=== PATIENT | male | born 1990 | race Caucasian/White ===

== ENCOUNTER 2018-12-13 06:17 | Day surgery (SDC) | payer BC ==
[2018-12-13] MEDS ORDERED: CEFAZOLIN 2 GM/50 ML (PMX) 50 ML IVPB (07:00)
[2018-12-13] MEDS: ACETAMINOPHEN 500 MG TAB PO (07:35)
[2018-12-13] MEDS: SOD CHLORIDE 0.9% 1,000 ML IV (07:37)
[2018-12-13 07:41] LABS: ADD MAN DIFF? NO
[2018-12-13 07:43] LABS: WHITE BLOOD COUNT 8.1 10^3/ul (4.8-10.8)
[2018-12-13 07:43] LABS: ABNORMAL IP MESSAGE 1; BASOPHIL # 0.1 10^3/ul (0.0-0.1); BASOPHILS % 0.6 % (0.0-2.0); EOSINOPHILS # 0.2 10^3/ul (0.0-0.5); EOSINOPHILS % 2.8 % (0.0-7.0); HEMATOCRIT 38.8 % (42.0-52.0); HEMOGLOBIN 12.4 g/dl (14.0-18.0); LYMPHOCYTES # 2.9 10^3/ul (0.8-2.9); LYMPHOCYTES % 35.7 % (15.0-51.0); MEAN CORPUSCULAR VOLUME 68.9 fl (82.0-101.0); MONOCYTE # 0.6 10^3/ul (0.3-0.9); MONOCYTES % 7.6 % (0.0-11.0); NEUTROPHIL # 4.3 10^3/ul (1.6-7.5); NEUTROPHILS % 52.9 % (39.0-77.0); PLATELET COUNT 276 10^3/UL (140-415); POSITIVE DIFF @See below; RED BLOOD COUNT 5.63 10^6/ul (4.70-6.10); RED CELL DISTRIBUTION WIDTH 18.6 % (11.5-14.5)
[2018-12-13 07:49] LABS: INR 0.99; PROTIME 13.2 Sec (11.9-14.9)
[2018-12-13 07:50] LABS: PARTIAL THROMBOPLASTIN TIME 31.3 Sec (23.0-35.0)
[2018-12-13 07:51] LABS: BLOOD UREA NITROGEN 12 mg/dl (7-20); CALCIUM 9.2 mg/dl (8.4-10.2); CARBON DIOXIDE 26 mmol/L (21-31); CHLORIDE 105 mmol/L (97-110); Estimated GFR > 60 mL/min (>60); GLUCOSE 96 mg/dl (70-220)
[2018-12-13] MEDS ORDERED: MIDAZOLAM 1 MG/ML 2 ML INJ (08:08)
[2018-12-13] MEDS ORDERED: FAMOTIDINE 20 MG INJ (08:08)
[2018-12-13] MEDS ORDERED: CEFAZOLIN 1 GM INJ (08:08)
[2018-12-13] MEDS ORDERED: FENTAnyl 50 MCG/ML VIAL (08:08)
[2018-12-13] MEDS ORDERED: ROCURONIUM 50 MG INJ (08:08)
[2018-12-13] MEDS ORDERED: ONDANSETRON 4 MG INJ (08:08)
[2018-12-13] MEDS ORDERED: LIDOCAINE 2% (SDV) 5 ML INJ (08:08)
[2018-12-13] MEDS ORDERED: PROPOFOL 40 ML (08:08)
[2018-12-13] MEDS ORDERED: KETOROLAC 30 MG INJ (08:15)
[2018-12-13 08:17] LABS: ANION GAP 10 (5-13); SODIUM 141 mmol/L (135-144)
[2018-12-13] MEDS ORDERED: MEPERIDINE 25 MG INJ IV (09:30)
[2018-12-13] MEDS ORDERED: DIPHENHYDRAMINE 50 MG INJ IV (09:30)
[2018-12-13] MEDS ORDERED: morphine 2 MG INJ IV ×3 (09:30→12:30)
[2018-12-13] MEDS ORDERED: FENTAnyl 50 MCG/ML VIAL IV ×2 (09:30)
[2018-12-13] MEDS ORDERED: EPHEDrine 25 MG/5 ML SYG IV (09:30)
[2018-12-13] MEDS ORDERED: HYDROmorphONE 1 MG/5 ML IV SYRINGE IV ×3 (09:30)
[2018-12-13] MEDS ORDERED: hydrALAzine 20 MG INJ IV (09:30)
[2018-12-13] MEDS ORDERED: ONDANSETRON 4 MG INJ IV ×2 (09:30→12:30)
[2018-12-13] MEDS ORDERED: ALBUTEROL 0.083% (NEB) 2.5 MG/3 ML AMP HHN (09:30)
[2018-12-13] MEDS ORDERED: LABETALOL HCL 20MG INJ IV (09:30)
[2018-12-13] MEDS ORDERED: OXYCODONE/ACETAMINOPHEN (5/325) TAB PO ×2 (09:30)
[2018-12-13] MEDS ORDERED: PHENYLephrine (100 MCG/ML) 10ML SYG (10:12)
[2018-12-13] MEDS: BUPIVACAINE 0.5%/EPI (SDV) 30 ML INJ (11:03)
[2018-12-13] MEDS: LIDOCAINE 1%/EPI 30 ML INJ (11:03)
[2018-12-13] MEDS ORDERED: LACTATED RINGER'S 1,000 ML IV (12:03)
[2018-12-13] MEDS ORDERED: HYDROCODONE/APAP (5/325) TAB PO (12:30)
== END 2018-12-13 13:02 | disposition home or self-care (01) ==
LOC: SDS 06:17
DX: L05.91 Pilonidal cyst without abscess (principal); F17.200 Nicotine dependence, unspecified, uncomplicated
CPT/HCPCS: 11772; 80048; 85025; 85610; 85730; 88304